=== PATIENT | female | born 1990 | race Caucasian/White ===

== ENCOUNTER 2024-08-04 14:32 | Emergency (ER) | payer BC ==
[2024-08-04 14:46] VITALS: TEMP 98.9
--- NOTE | 2024-08-04 14:54 | ERPHSYRPT ---
- History of Present Illness Time Seen by Provider: 08/04/24 14:47 Source: patient Exam Limitations: no limitations Patient Subjective Stated Complaint: Pt states "I went to [facility] yesterday and they gave me augmentin and my face was swollen yesterday and was almost purpleish. I took benadryl yesterday and I took some today but today my tongue is swollen and my throat hurts." Triage Nursing Assessment: Pt presented alert and oriented X 3, skin wpd. PT ambulates with an upright steady gait, able to speak in clear full clear sentences. Pt tongue is swollen. Physician History: Pt states she was given augmentin 2 days ago for a sore throat and her face started to swell; pt states today the facial swelling is less but about 8 hours ago her tongue started swelling. Pt denies shortness of air, chest pain, fever, nausea, vomiting. Allergies/Adverse Reactions: No Known Drug Allergies Allergy (Verified 08/04/24 14:46) Home Medications: Amoxicillin/Potassium Clav [Amox-Clav 875-125 mg Tablet] 1 each PO BID 08/04/24 [History] Meclizine HCl 25 mg [Antivert 25 mg] 25 mg PO DAILY 08/04/24 [History] Zolpidem Tartrate 10 mg [Ambien 10 MG] 10 mg PO HS 08/04/24 [History] Hx Tetanus, Diphtheria Vaccination/Date Given: No Hx Influenza Vaccination/Date Given: No Hx Pneumococcal Vaccination/Date Given: No Immunizations Up to Date: No Travel Risk - International Travel Have you traveled outside of the country in past 3 weeks: No - Emerging Infectious Disease Are you exhibiting symptoms associated with any current EIDs: No - Review of Systems Constitutional: No Fever Ears, Nose, & Throat: Other (tongue swelling today) Respiratory: No Dyspnea Cardiac: No Chest Pain Abdominal/Gastrointestinal: No Abdominal Pain, No Nausea, No Vomiting Neurological: No Headache - Past Medical History Pertinent Past Medical History: Yes Neurological History: TIA ENT History: No Pertinent History Cardiac History: High Cholesterol Respiratory History: Bronchitis Endocrine Medical History: No Pertinent History Musculoskeletal History: No Pertinent History GI Medical History: No Pertinent History History: No Pertinent History Psycho-Social History: No Pertinent History Female Reproductive Disorders: Cervical Cancer, Uterine Cancer - Past Surgical History Past Surgical History: Yes Female Surgical History: Hysterectomy - Female History Hx Last Menstrual Period: hysterectomy Hx Now: No - Social History Smoking Status: Never smoker Exposure to second hand smoke: No Drug Use: none - Social Determinants of Health Will the patient participate in the screening: Declined to provide - Nursing Vital Signs Nursing Vital Signs: Initial Vital Signs Temperature 98.9 F 08/04/24 14:39 Pulse Rate 70 08/04/24 14:39 Respiratory Rate 20 08/04/24 14:39 Blood Pressure 112/88 08/04/24 14:39 O2 Sat by Pulse Oximetry 100 08/04/24 14:39 Pain Scale Pain Intensity 0 - Physical Exam General Appearance: alert Eye Exam: PERRL/EOMI Ears, Nose, Throat Exam: TMs normal, pharynx normal, moist mucous membranes, other (no pharyngeal edema; mild tongue edema) Neck Exam: normal inspection Respiratory Exam: lungs clear Cardiovascular Exam: normal heart sounds Gastrointestinal/Abdomen Exam: normal bowel sounds Extremity Exam: No pedal edema Neurologic Exam: alert, cooperative Skin Exam: warm, dry SpO2 Interpretation: normal SpO2: 100 O2 Delivery: Room Air - Course Nursing assessment & vital signs reviewed: Yes Ordered Tests: Active Orders 24 hr Category Date Time Status IV Insertion STAT Care 08/04/24 14:53 Active Medication Summary Discontinued Medications Generic Name Dose Route Start Last Admin Trade Name Melecioq PRN Reason Stop Dose Admin Methylprednisolone Sodium 0 mg 08/04/24 14:53 08/04/24 14:59 Succinate 125 mg/ Sterile IV 08/04/24 14:54 125 mg Water 2 ml STAT ONE Administration Diphenhydramine HCl 25 mg 08/04/24 14:53 08/04/24 15:00 Diphenhydramine Hcl 50 Mg/Ml Vial IV 08/04/24 14:54 25 mg STAT ONE Administration Diphenhydramine HCl Confirm 08/04/24 14:58 Diphenhydramine Hcl 50 Mg/Ml Vial Administered 08/04/24 14:59 Dose 50 mg .ROUTE .STK-MED ONE Methylprednisolone Sodium Succinate Confirm 08/04/24 14:58 Methylprednis Sod Succ 125 Mg/2 Ml Vial Administered 08/04/24 14:59 Dose 125 mg .ROUTE .STK-MED ONE Sterile Water Confirm 08/04/24 14:57 Water For Injection,Sterile 10 Ml Vial Administered 08/04/24 14:58 Dose 10 ml IJ .STK-MED ONE - Progress Progress: improved Progress Note: 08/04/24 18:53 less tongue edema Counseled pt/family regarding: diagnosis, need for follow-up - Departure Departure Disposition: Home Clinical Impression: Angioedema of tongue, Allergic reaction to Augmentin Condition: Stable Critical Care Time: No Referrals: SARATH GARZON [Primary Care Provider] - Follow up/PCP as directed Instructions: Adverse Drug Reactions, Adult (DC) Additional Instructions: Follow up with private doctor tomorrow. Do not take augmentin or penicillin. Prescriptions: Hydroxyzine HCl 25 mg [Atarax 25 mg] 25 mg PO Q4H PRN PRN #30 tablet PRN Reason: Allergies Methylprednisolone Packet [Medrol Dosepack] 4 mg PO UD #30 packet
[2024-08-04] MEDS ORDERED: Sterile H2O 10 ml IJ ONE (14:57)
[2024-08-04] MEDS ORDERED: BENADRYL 50 MG/ML ONE (14:58)
[2024-08-04] MEDS ORDERED: solu-MEDROL ONE (14:58)
[2024-08-04] MEDS: solu-MEDROL 125 MG, Sterile H2O 10 ml 2 ML IV ONE (14:59)
[2024-08-04] MEDS: BENADRYL 50 MG/ML IV ONE (15:00)
[2024-08-04] MEDS ORDERED: ATARAX 25 MG ONE (18:49)
[2024-08-04] MEDS: ATARAX 25 MG PO ONE (18:50)
[2024-08-04 19:04] VITALS: BP 118/75; PULSE 82; RESP 16; O2SAT 97
== END 2024-08-04 19:11 | disposition home or self-care (01) ==
LOC: ED 14:32
DX: T78.3XXA Angioneurotic edema, initial encounter (principal); T36.0X5A Adverse effect of penicillins, initial encounter; T36.1X5A Adverse effect of cephalosporins and other beta-lactam antibiotics, initial encounter; E78.5 Hyperlipidemia, unspecified; Z79.52 Long term (current) use of systemic steroids; Z79.899 Other long term (current) drug therapy
CPT/HCPCS: 96374; 96375; 99283; 99284; J1200; J2919; A9270-GY

== ENCOUNTER 2024-08-06 12:43 | Emergency (ER) | payer BC ==
[2024-08-06 12:58] VITALS: PULSE 103; TEMP 97.3
[2024-08-06 13:19] VITALS: O2SAT 99
[2024-08-06] MEDS ORDERED: BENADRYL 50 MG/ML ONE (13:19)
[2024-08-06] MEDS ORDERED: solu-CORTEF 250MG ONE (13:20)
[2024-08-06] MEDS ORDERED: Pepcid 20 MG VIAL IV ONE (13:20)
[2024-08-06] MEDS: Pepcid 20 MG VIAL IV ONE (13:23)
[2024-08-06] MEDS: BENADRYL 50 MG/ML IV ONE (13:25)
[2024-08-06] MEDS: solu-CORTEF 250MG IV ONE (13:26)
--- NOTE | 2024-08-06 13:31 | ERPHSYRPT ---
- History of Present Illness Time Seen by Provider: 08/06/24 13:27 Source: patient Exam Limitations: no limitations Patient Subjective Stated Complaint: swelling to the tongue, rash on back, chest, face, and legs Triage Nursing Assessment: Pt brought self to the ER, hypertensive, rates pain as 7/10, chest feels "heavy", reports some relief after taking the dose pack but after it wears off the swelling comes back to her tongue, face is flushed and is burning, unable to get a full deep breath, lungs clear Physician History: Patient is 33-year-old female who was seen in the emergency room 3 to 4 days ago with allergic reaction to amoxicillin. Patient was started on hydroxyzine and Medrol Dosepak. It did not relieve her symptoms and she started feeling that her tongue is swelling so she came to the emergency room. In the emergency room her main symptom was swollen tongue and rash all over the body. She is also complaining of itching on the back. She denies any shortness of breath. Timing/Duration: day(s) (3-4 days) Severity: moderate Associated Symptoms: rash, other (swollen tongue) Allergies/Adverse Reactions: amoxicillin [From Augmentin] Allergy (Severe, Verified 08/06/24 12:58) Swelling of Tongue and Lips clavulanic acid [From Augmentin] Allergy (Severe, Verified 08/06/24 12:58) Swelling of Tongue and Lips Home Medications: Meclizine HCl 25 mg [Antivert 25 mg] 25 mg PO DAILY 08/04/24 [History] Zolpidem Tartrate 10 mg [Ambien 10 MG] 10 mg PO HS 08/04/24 [History] Hx Tetanus, Diphtheria Vaccination/Date Given: No Hx Influenza Vaccination/Date Given: No Hx Pneumococcal Vaccination/Date Given: No Travel Risk - International Travel Have you traveled outside of the country in past 3 weeks: No - Emerging Infectious Disease Are you exhibiting symptoms associated with any current EIDs: No - Review of Systems Constitutional: No Fever, No Chills Eyes: No Symptoms Ears, Nose, & Throat: No Symptoms, Other (swollen tongue) Respiratory: No Cough, No Dyspnea Cardiac: No Chest Pain, No Edema, No Syncope Abdominal/Gastrointestinal: No Abdominal Pain, No Nausea, No Vomiting, No Diarrhea Genitourinary Symptoms: No Dysuria Musculoskeletal: No Back Pain, No Neck Pain Skin: Rash Neurological: No Dizziness, No Focal Weakness, No Sensory Changes Psychological: No Symptoms Endocrine: No Symptoms All Other Systems: Reviewed and Negative - Past Medical History Pertinent Past Medical History: Yes Neurological History: TIA ENT History: No Pertinent History Cardiac History: High Cholesterol Respiratory History: Bronchitis Endocrine Medical History: No Pertinent History Musculoskeletal History: No Pertinent History GI Medical History: No Pertinent History History: No Pertinent History Psycho-Social History: No Pertinent History Female Reproductive Disorders: Cervical Cancer, Uterine Cancer - Past Surgical History Past Surgical History: Yes Female Surgical History: Hysterectomy - Female History Hx Last Menstrual Period: hysterectomy Hx Now: No - Social History Smoking Status: Current every day smoker How long have you smoked: vapes Exposure to second hand smoke: No Drug Use: none - Social Determinants of Health Will the patient participate in the screening: Declined to provide - Nursing Vital Signs Nursing Vital Signs: Initial Vital Signs Temperature 97.3 F 08/06/24 12:48 Pulse Rate 103 H 08/06/24 12:48 Blood Pressure 160/99 08/06/24 12:48 O2 Sat by Pulse Oximetry 100 08/06/24 12:48 Pain Scale Pain Intensity 7 - Physical Exam General Appearance: no apparent distress, alert Eye Exam: PERRL/EOMI, eyes nml inspection Ears, Nose, Throat Exam: normal ENT inspection, TMs normal, pharynx normal, moist mucous membranes, other (swollen tongue) Neck Exam: normal inspection, non-tender, supple, full range of motion Respiratory Exam: normal breath sounds, lungs clear, No respiratory distress Cardiovascular Exam: regular rate/rhythm, normal heart sounds, normal peripheral pulses Gastrointestinal/Abdomen Exam: soft, normal bowel sounds, No tenderness, No mass Back Exam: normal inspection, normal range of motion, No CVA tenderness, No vertebral tenderness Extremity Exam: normal inspection, normal range of motion, pelvis stable Neurologic Exam: alert, oriented x 3, cooperative, normal mood/affect, nml cerebellar function, nml station & gait, sensation nml, No motor deficits Skin Exam: normal color, warm, dry, No rash Lymphatic Exam: No adenopathy SpO2: 99 - Course Nursing assessment & vital signs reviewed: Yes Ordered Tests: Medication Summary Discontinued Medications Generic Name Dose Route Start Last Admin Trade Name Freq PRN Reason Stop Dose Admin Diphenhydramine HCl 25 mg 08/06/24 13:18 08/06/24 13:25 Diphenhydramine Hcl 50 Mg/Ml Vial IV 08/06/24 13:19 25 mg STAT ONE Administration Diphenhydramine HCl Confirm 08/06/24 13:19 Diphenhydramine Hcl 50 Mg/Ml Vial Administered 08/06/24 13:20 Dose 50 mg .ROUTE .STK-MED ONE Famotidine 20 mg 08/06/24 13:08 08/06/24 13:23 Famotidine 20 Mg/1 Vial IV 08/06/24 13:09 20 mg STAT ONE Administration Famotidine Confirm 08/06/24 13:20 Famotidine 20 Mg/1 Vial Administered 08/06/24 13:21 Dose 20 mg IV .STK-MED ONE Hydrocortisone Sodium Succinate 250 mg 08/06/24 13:09 08/06/24 13:26 Hydrocortisone Sod Succinate 250 Mg/Vial Vial IV 08/06/24 13:10 250 mg STAT ONE Administration Hydrocortisone Sodium Succinate Confirm 08/06/24 13:20 Hydrocortisone Sod Succinate 250 Mg/Vial Vial Administered 08/06/24 13:21 Dose 250 mg .ROUTE .STK-MED ONE - Progress Progress: improved Counseled pt/family regarding: diagnosis, need for follow-up Medical Desision Making - Risk of complications Minimal Risk: Minimal risk of morbidity - Departure Departure Disposition: Home Clinical Impression: Angioedema of tongue, Allergic reaction to Augmentin Condition: Stable Critical Care Time: No Referrals: SARATH GARZON [Primary Care Provider] - Follow up/PCP as directed Instructions: Adverse Drug Reactions, Adult (DC) Additional Instructions: Discharge/Care Plan JOJO ABARCALINE was seen on 08/06/24 in the Emergency Room. The patient was counseled regarding Diagnosis,Lab results, Imaging studies, need for follow up and when to return to the Emergency Room. Prescriptions given: Discharge Note I have spoken with the patient and/or caregivers. I have explained the patient's condition, diagnosis and treatment plan based on the information available to me at this time. I have answered the patient's and/or caregiver's questions and ad dressed any concerns. The patient and/or caregivers have as good understanding of the patient's diagnosis, condition and treatment plan as can be expected at this point. The vital signs have been stable. The patient's condition is stable and appropriate for discharge from the emergency department. The patient will pursue further outpatient evaluation with the primary care physician or other designated or consulting physician as outlined in the discharge instructions. The patient and/or caregivers are agreeable to this plan of care and follow-up instructions have been explained in detail. The patient and/or caregivers have received these instruction. The patient/and or caregivers are aware that any significant change in condition or worsening of symptoms should prompt an immediate return to this or the closest emergency department or call 911. DB ABARCA was seen on 08/06/24 n the Emergency Room. At that time you were treated for an emergent condition, during your visit Laboratory, Radiology and/or other procedures may have been ordered. It is very important that you follow-up with your Primary Care Physician SARATH GARZON within the next 24-48 hours to review your Emergency Room visit and the final results of testing that was ordered. Some test results such as Urine Cultures, Blood Cultures, and other cultures if ordered will not be finalized for 24-48 hours. If you do not have a Primary Care Provider please call the medical records department at [phone] ext [phone] to obtain a copy of your results or you may sign into our patient portal to obtain these results by visiting us @ [email or web address] and completing the following steps: 1. Click on the Patient Portal link 2. Click the Patient Self Enrollment Link to complete the enrollment form and entering your 3. Once the enrollment form is completed you will receive an email with a temp orary ID and password at the email address you provided. 4. Next choose a user name and password. Your user name must be at least 4 characters long and your password must be at least 4 characters long. 5. Choose a security question from the list and provide your answer to the question. If you already have signed into the Health Portal you may access your Health Care Information 01/02 by the following steps: 1. Login to our website @ [email or web address] 2. Enter your original user name and password. FAQS The [facility] Health Portal is an online tool that contains your Lab Results, Radiology Reports, Visit History, Discharge Instructions and Health Summary Lab and Radiology Results will not be available for 72 hours on the portal. The Portal is a secure site, passwords are encryted and URLs are re-written so they cannot be copied and pasted. You and authorized family members are the only ones who can access your Portal. Also there is a timeout feature that protects your information if you leave the Portal page open. If you have technical difficulty please use the Contact Us link on the page this will allow you to submit any questions you have regarding the Portal or you may contact the Medical Record Department at [phone] ext [phone]. Prescriptions: Diphenhydramine HCl 25 mg [Benadryl 25 mg Capsule] 25 mg PO Q6H PRN PRN #40 cap PRN Reason: Allergies Famotidine 20 mg [Pepcid 20 MG] 20 mg PO BID #60 tablet
[2024-08-06 13:41] VITALS: BP 126/82
== END 2024-08-06 13:41 | disposition home or self-care (01) ==
LOC: ED 12:43
DX: T78.3XXA Angioneurotic edema, initial encounter (principal); T36.0X5A Adverse effect of penicillins, initial encounter; T36.1X5A Adverse effect of cephalosporins and other beta-lactam antibiotics, initial encounter; R21 Rash and other nonspecific skin eruption; E78.5 Hyperlipidemia, unspecified; Z79.899 Other long term (current) drug therapy; Z72.0 Tobacco use
CPT/HCPCS: 96374; 96375; 99283; 99284; J1200; J1720